=== PATIENT | female | born 1965 | race Caucasian/White ===

== ENCOUNTER 2017-11-15 23:52 | Emergency (ER) | payer BC ==
--- NOTE | 2017-11-16 00:34 | EDM.PDOC ---
ED HPI GENERAL MEDICAL PROBLEM - General Chief Complaint: Abdominal Pain Stated Complaint: LOWER MIDDLE AND LEFT ABDOMINAL PAIN Time Seen by Provider: 11/16/17 00:33 - History of Present Illness INITIAL COMMENTS - FREE TEXT/NARRATIVE: 52-year-old female presents emergency room with abdominal pain. This pain is been going on for the last several days progressively getting worse. The pain is located in the mid left and lower left abdomen. She has decreased appetite questionable nausea no vomiting no diarrhea no constipation no blood in her stools. She denies fevers or chills and if wasn't for this abdominal discomfort she would be doing well. The patient denies ever having problems like this in the past. She has irritable bowel syndrome and that acts much different she has 2 siblings with diverticulitis. She had a colonoscopy a year or 2 ago and thought perhaps she had diverticulosis. Left Lower Abdomen Pain Score (Numeric/FACES): 10 - Related Data Allergies Allergy/AdvReac Type Severity Reaction Status Date / Time Ndikvll-Sta-[id number] Reductase Allergy Muscle Verified 11/16/17 00:02 Inhibitor Aches tegaserod [From Zelnorm] Allergy Cannot Verified 11/16/17 00:02 Remember Home Meds: Home Meds Acetaminophen/HYDROcodone [[place] 325-5 MG] 1 - 2 tab PO Q6H PRN #20 tablet 11/16 [Rx] Levofloxacin [Levaquin] 500 mg PO DAILY #9 tab 11/16/17 [Rx] metroNIDAZOLE [Flagyl] 500 mg PO Q8H #29 tab 11/16/17 [Rx] Past Medical History Cardiovascular History: Reports: High Cholesterol, Hypertension - Past Surgical History Female Surgical History: Reports: Hysterectomy Social & Family History - Tobacco Use Smoking Status *Q: Never Smoker - Recreational Drug Use Recreational Drug Use: No ED ROS GENERAL - Review of Systems Review Of Systems: See Below Constitutional: Denies: Fever, Chills HEENT: Reports: No Symptoms Respiratory: Reports: No Symptoms Cardiovascular: Reports: No Symptoms Endocrine: Reports: No Symptoms GI/Abdominal: Reports: Abdominal Pain, Anorexia. Denies: Constipation, Diarrhea , Distension, Nausea, Vomiting : Reports: No Symptoms Musculoskeletal: Reports: No Symptoms Skin: Reports: No Symptoms Neurological: Reports: No Symptoms ED EXAM, GI/ABD - Physical Exam Exam: See Below Exam Limited By: No Limitations General Appearance: Alert, No Apparent Distress Head: Atraumatic, Normocephalic Neck: Normal Inspection, Supple, Non-Tender, Full Range of Motion Respiratory/Chest: No Respiratory Distress, Lungs Clear, Normal Breath Sounds, No Accessory Muscle Use, Chest Non-Tender Cardiovascular: Normal Peripheral Pulses, Regular Rate, Rhythm, No Edema, No Gallop, No JVD, No Murmur, No Rub GI/Abdominal Exam: Normal Bowel Sounds, Soft, Tender (Left abdomen worse in the left lower quadrant over the splenic flexure no rigidity rebound or guarding) Back Exam: Normal Inspection. No: CVA Tenderness (L), CVA Tenderness (R) Course - Vital Signs Last Recorded V/S: Last Vital Signs Temp 36.7 C 11/16/17 00:03 Pulse 124 H 11/16/17 00:03 Resp 16 11/16/17 00:03 BP 128/85 11/16/17 00:03 Pulse Ox 97 11/16/17 00:03 - Orders/Labs/Meds Orders: Active Orders 24 hr Category Date Time Status Abdomen Pelvis w Cont [CT] Stat Exams 11/16/17 00:44 Taken Sodium Chloride 0.9% [Normal Saline] 1,000 ml Med 11/16/17 00:45 Active IV ASDIRECTED Sodium Chloride 0.9% [Saline Flush] Med 11/16/17 02:01 Active 10 ml FLUSH ONETIME PRN Medication Orders Sodium Chloride (Normal Saline) 1,000 mls @ 125 mls/hr IV ASDIRECTED MAAME Sodium Chloride (Saline Flush) 10 ml FLUSH ONETIME PRN PRN Reason: IV FLUSH Last Admin: 11/16/17 02:22 Dose: 10 ml Labs: Laboratory Tests 11/16/17 11/16/17 11/16/17 Range/Units 00:50 00:50 01:57 WBC 15.19 H (3.98-10.04) K/mm3 RBC 5.05 (3.98-5.22) M/mm3 Hgb 14.3 (11.2-15.7) gm/L Hct 42.1 (34.1-44.9) % MCV 83.4 (79.4-94.8) fl MCH 28.3 (25.6-32.2) pg MCHC 34.0 (32.2-35.5) g/dl RDW Std Deviation 40.2 (36.4-46.3) fL Plt Count 301 (182-369) K/mm3 MPV 10.8 (9.4-12.3) fl Neutrophils % (Manual) 90 H (40-60) % Band Neutrophils % 0 (0-10) % Lymphocytes % (Manual) 9 L (20-40) % Atypical Lymphs % 0 % Monocytes % (Manual) 0 L (2-10) % Eosinophils % (Manual) 1 (0.7-5.8) % Basophils % (Manual) 0 L (0.1-1.2) Platelet Estimate Adequate RBC Morph Comment Normal Sodium 138 (136-145) mEq/L Potassium 3.5 (3.5-5.1) mEq/L Chloride 99 (98-107) mEq/L Carbon Dioxide 24 (21-32) mEq/L Anion Gap 18.5 H (5-15) BUN 16 (7-18) mg/dL Creatinine 1.0 (0.55-1.02) mg/dL Est Cr Clr Drug Dosing 57.47 mL/min Estimated GFR (MDRD) 58 (>60) mL/min BUN/Creatinine Ratio 16.0 (14-18) Glucose 119 H (74-106) mg/dL Calcium 9.0 (8.5-10.1) mg/dL Total Bilirubin 0.4 (0.2-1.0) mg/dL AST 22 (15-37) U/L ALT 45 (14-59) U/L Alkaline Phosphatase 98 (46-116) U/L Total Protein 7.6 (6.4-8.2) g/dl Albumin 3.6 (3.4-5.0) g/dl Globulin 4.0 gm/dL Albumin/Globulin Ratio 0.9 L (1-2) Lipase 66 L (73-393) U/L Urine Color Yellow (Yellow) Urine Appearance Clear (Clear) Urine pH 5.5 (5.0-8.0) Ur Specific [place] 1.025 (1.005-1.030) Urine Protein Negative (Negative) Urine Glucose (UA) Negative (Negative) Urine Ketones Negative (Negative) Urine Occult Blood Negative (Negative) Urine Nitrite Negative (Negative) Urine Bilirubin Negative (Negative) Urine Urobilinogen 0.2 (0.2-1.0) Ur Leukocyte Esterase Trace H (Negative) Urine RBC 0-5 (0-5) /hpf Urine WBC 0-5 (0-5) /hpf Ur Epithelial Cells 0-5 (0-5) /hpf Urine Bacteria Few (FEW) /hpf Urine Mucus Few (FEW) /hpf Meds: Medications Generic Name Dose Route Start Last Admin Trade Name Freq PRN Reason Stop Dose Admin Sodium Chloride 1,000 mls @ 125 mls/hr 11/16/17 00:45 Normal Saline IV ASDIRECTED MAAME Sodium Chloride 10 ml 11/16/17 02:01 11/16/17 02:22 Saline Flush FLUSH 10 ml ONETIME PRN Administration IV FLUSH Discontinued Medications Generic Name Dose Route Start Last Admin Trade Name Freq PRN Reason Stop Dose Admin Diatrizoate Meglum/Diatrizoate Sod 90 ml 11/16/17 02:01 11/16/17 02:22 Gastrografin 37% PO 11/16/17 02:02 90 ml ONETIME ONE Administration Hydromorphone HCl 0.5 mg 11/16/17 01:52 11/16/17 01:59 Dilaudid IVPUSH 11/16/17 01:53 0.5 mg ONETIME ONE Administration Sodium Chloride 500 mls @ 999 mls/hr 11/16/17 00:43 11/16/17 00:50 Normal Saline IV 11/16/17 01:13 999 mls/hr .BOLUS ONE Administration Iopamidol 125 ml 11/16/17 02:01 11/16/17 02:22 Isovue-300 (61%) IVPUSH 11/16/17 02:02 125 ml ONETIME ONE Administration Ondansetron HCl 4 mg 11/16/17 01:52 11/16/17 01:59 Zofran IVPUSH 11/16/17 01:53 4 mg ONETIME ONE Administration - Re-Assessments/Exams Free Text/Narrative Re-Assessment/Exam: 11/16/17 03:43 Laboratory evaluation is unrevealing except her white count is 15,000 CT was obtained which is consistent with sigmoid diverticulitis without abscess or evidence of bowel obstruction incidentally a 2.1 cm nodules noted in the right lobe of the liver most likely representing small hemangioma discussed hospitalization with the patient she much rather be treated as an outpatient she 'll be started on oral Levaquin and Flagyl Departure - Departure Time of Disposition: 03:44 Disposition: Home, Self-Care 01 Clinical Impression: Sigmoid diverticulitis - Discharge Information Prescriptions: Acetaminophen/HYDROcodone [[place] 325-5 MG] 1 - 2 tab PO Q6H PRN #20 tablet PRN Reason: Abdominal Pain Levofloxacin [Levaquin] 500 mg PO DAILY #9 tab metroNIDAZOLE [Flagyl] 500 mg PO Q8H #29 tab Referrals: Ligia Hays, FISCAL CLERK [Primary Care Provider] - Forms: ED Department Discharge Additional Instructions: Return to the emergency room with any questions or problems. Follow-up with your regular provider on Thursday for recheck, sooner if needed Take the antibiotics as directed. The Levaquin is taken once daily you've been given a dose tonight and take her next dose tomorrow night and then nightly thereafter. The Flagyl, or metronidazole, is taken 3 times a day start this later this morning when the prescription is filled. The hydrocodone is a pain pill take one or 2 every 6 hours as needed. Allow 12 hours after using this before driving or returning to work. - My Orders Last 24 Hours: My Active Orders 11/16/17 00:44 Abdomen Pelvis w Cont [CT] Stat 11/16/17 00:45 Sodium Chloride 0.9% [Normal Saline] 1,000 ml IV ASDIRECTED 11/16/17 02:01 Sodium Chloride 0.9% [Saline Flush] 10 ml FLUSH ONETIME PRN - Assessment/Plan Last 24 Hours: My Active Orders 11/16/17 00:44 Abdomen Pelvis w Cont [CT] Stat 11/16/17 00:45 Sodium Chloride 0.9% [Normal Saline] 1,000 ml IV ASDIRECTED 11/16/17 02:01 Sodium Chloride 0.9% [Saline Flush] 10 ml FLUSH ONETIME PRN
[2017-11-16] MEDS ORDERED: Sodium Chloride 0.9% 500 ML IV ONE (00:43)
[2017-11-16] MEDS ORDERED: Sodium Chloride 0.9% 1,000 ML IV SCH (00:45)
[2017-11-16] MEDS ORDERED: Ondansetron 4 MG/2 ML SDV IVPUSH ONE (01:52)
[2017-11-16] MEDS ORDERED: HYDROmorphone 0.5 MG/0.5 ML SYRINGE IVPUSH ONE (01:52)
[2017-11-16] MEDS ORDERED: Sodium Chloride 0.9% 10 ML Syringe FLUSH PRN (02:01)
[2017-11-16] MEDS ORDERED: Diatrizoate Meglumine/Diatrizoate Sodium 37% 120 ML Bottle PO ONE (02:01)
[2017-11-16] MEDS ORDERED: Iopamidol 612 MG/ML 150 ML Bottle IVPUSH ONE (02:01)
[2017-11-16] MEDS ORDERED: metroNIDAZOLE 500 MG Tab PO ONE (03:38)
[2017-11-16] MEDS ORDERED: Levofloxacin 750 MG Tab PO ONE (03:38)
--- NOTE | 2017-11-16 15:48 | CT ---
CT abdomen and pelvis Technique: Multiple axial sections were obtained from above the dome of the diaphragm inferiorly through the pubic symphysis. Intravenous contrast was utilized. Oral contrast has been given. Delayed images were obtained through the bladder. Findings: Inflammatory change with adjacent bowel wall thickening is identified within the distal descending colon surrounding a diverticula compatible with diverticulitis. No fluid collections of abscess are seen at this time. Visualized lung bases are clear. Low-density finding is noted within the posterior right lobe of the liver measuring about 2.1 cm. No additional abnormality is identified within the liver. Spleen appears within normal limits. Adrenal glands show no nodule. Pancreas appears within normal limits. Gallbladder contains no calcified gallstones. Kidneys show symmetric contrast enhancement without hydronephrosis or mass. Aorta shows no aneurysmal dilatation. No retroperitoneal adenopathy or mesenteric abnormalities are seen. No pelvic mass or adenopathy is seen. Delayed images show contrast within the distal ureters and within the bladder. Appendix is seen which appears normal in size. Degenerative change and scoliosis is noted within the spine. Spinal fixation rods are seen. Scattered degenerative change is noted within the spine. Impression: 1. Findings compatible with diverticulitis within the distal descending colon. 2. Mass within the right lobe of the liver. This may represent a hemangioma although ultrasound recommended to see if this has the appearance of a hemangioma bilateral modality. 3. Other incidental findings. Diagnostic code #9 I agree with preliminary report issued by [facility], additional recommendation of ultrasound of liver, ([facility] preliminary report dictated on 11/16/17, 4:19 AM Central Time)
== END 2017-11-16 04:01 | disposition home or self-care (01) ==
LOC: JD.ED 23:52
DX: K57.32 Diverticulitis of large intestine without perforation or abscess without bleeding (principal); I10 Essential (primary) hypertension; E78.00 Pure hypercholesterolemia, unspecified; Z88.8 Allergy status to other drugs, medicaments and biological substances; Z79.899 Other long term (current) drug therapy
CPT/HCPCS: 36415; 74177; 80053; 81001; 83690; 85007; 85027; 96361; 96374; 96375; 99284; A9270; J1170; J2405; J7040; J7050; Q9963; Q9967